=== PATIENT | female | born 1975 | race Asian ===

== ENCOUNTER 2023-02-01 09:05 | Day surgery (SDC) | payer MEDICAID ==
[~2023-02-01] VITALS: Ht 170.2 cm; Wt 61.2 kg
[2023-02-01 09:28] LABS: HCG,QUAL RESULT NEGATIVE (NEGATIVE)
[2023-02-01] MEDS ORDERED: fentaNYL CITRATE/PF 100 MCG/2 ML AMP ONE (11:45)
[2023-02-01] MEDS ORDERED: ONDANSETRON HCL 4 MG/2 ML VIAL ONE (11:45)
[2023-02-01] MEDS ORDERED: NS 1000 ML IV.SOLN IV ONE (11:45)
[2023-02-01] MEDS ORDERED: METOCLOPRAMIDE HCL 10 MG/2 ML VIAL ONE (11:45)
[2023-02-01] MEDS ORDERED: KETOROLAC TROMETHAMINE 30 MG VIAL ONE (11:45)
[2023-02-01] MEDS ORDERED: PROPOFOL 200MG/ 20ML VIAL (DIPRIVAN) IV ONE (11:45)
[2023-02-01] MEDS ORDERED: SEVOFLURANE 15 MIN GAS INH ONE (11:45)
[2023-02-01] MEDS ORDERED: DEXAMETHASONE SOD PHOSPHATE 4 MG/ML VIAL ONE (11:45)
[2023-02-01] MEDS ORDERED: ONDANSETRON HCL 4 MG/2 ML VIAL IVP PRN (12:00)
[2023-02-01] MEDS ORDERED: HYDROmorphone 1 MG/ML INJ. CARTRIDGE IVP PRN ×2 (12:00)
[2023-02-01 13:44] VITALS: BP_SYST 116
== END 2023-02-01 13:36 | disposition home or self-care (01) ==
LOC: SDS 09:05 → SMU 09:08 → SDS 13:36
PROVIDERS: ATTEND Obstetrics & Gynecology
DX: N92.0 Excessive and frequent menstruation with regular cycle (principal); D25.2 Subserosal leiomyoma of uterus; Z20.822 Contact with and (suspected) exposure to COVID-19; Z88.0 Allergy status to penicillin; Z79.899 Other long term (current) drug therapy
CPT/HCPCS: 87081; 58563; 84703; 36415; 87426; J1100; J1885; J2765; J2405; J2704; J3010; J7030